=== PATIENT | female | born 1955 | race Caucasian/White ===

== ENCOUNTER → 2023-06-19 | Outpatient (CLI) | payer OTHER ==
--- NOTE | 2023-06-19 14:48 | P.SLEEP ---
History of Present Illness DATE: 06/19/2023 CONSULTATION/NEW PATIENT EVALUATION HISTORY OF PRESENT ILLNESS/SLEEP-WAKE EVALUATION: 67-year-old lady had been evaluated in the sleep center for possible obstructive sleep apnea hypopnea syndrome. Patient has history of obstructive sleep apnea hypopnea syndrome diagnosed about 20 years ago. At that time patient was started on treatment with CPAP but for different reason was not able to use CPAP equipment. SLEEP SCHEDULE: Usually sleep schedule from 10 PM to 5 AM on weekdays and from 10 PM to 7 AM on weekend. FALLING ASLEEP: Usually no problems with falling asleep. DURING SLEEP: Patient snores and has multiple awakenings from sleep 4 times with dry mouth, heartburn and sweating. No history of hypnogogical hallucinations, sleep paralysis, or cataplexy. DURING THE DAY/WAKE STATE: In the morning patient wake up tired, has problems with memory, irritability, depression and anxiety. [place] sleepiness scale is borderline 9. Patient usually doesn't take naps. PAST MEDICAL HISTORY: Depression, acid reflux, hyperlipidemia. PAST SURGICAL HISTORY: 1 parathyroid gland have been removed, surgical treatment for cataract bilaterally. MEDICATIONS: Paxil, Crestor, omeprazole, Wellbutrin, trazodone, vitamin B12, vitamin D. SOCIAL HISTORY: Negative for smoking, alcohol consumption occasional. FAMILY HISTORY: Hypertension, heart problems, depression. REVIEW OF SYSTEMS: Snoring, multiple awakenings from sleep, sleepiness during the day. No fevers. No double vision. No recent chest pain. No shortness of breath. No abdominal pain. No bleeding episodes. No blood in urine. No seizure episodes. PHYSICAL EXAMINATION: GENERAL: A pleasant patient without any distress. VITAL SIGNS: BP 144/79 , HR 99 , RR 18 , weight 159.8 pounds, height 5 foot 1 inches, body mass index 30.0 . HEENT: PERRLA, EOMI. Evaluation of oropharynx showed tongue protrudes midline, low position of soft palate Mallampati 3, retrognathia 2 mm NECK: Supple. No JVD. Thyroid is not palpable. 15-1/4 inches in circumference. LUNGS: Clear to percussion and to auscultation. Good air exchange. No wheezing or rhonchi. HEART: S1, S2 regular. No murmurs, gallops or rubs. ABDOMEN: Soft and nontender. Bowel sounds are present. No organomegaly appreciated. EXTREMITIES: No clubbing or cyanosis. CHUTE MAN: Awake, alert, and oriented x3. Cranial nerves 2 to 7 intact. There is no fasciculation or atrophy noted. No focal deficits observed. ASSESSMENT: 1. Snoring, multiple awakenings from sleep, low position of soft palate Mallampati 3, retrognathia history of obstructive sleep apnea in the past diagnosed in another institution. Obstructive sleep apnea hypopnea syndrome 2. Depression 3. Hyperlipidemia 4. Acid reflux 5 status post 1 parathyroid gland removed 6 . Status post surgical treatment for cataract bilaterally. 7. Mild obesity, body mass index 30.0. PLAN: 1. Polysomnography for evaluation of patient's breathing during sleep. 2. CPAP/BiPAP titration if sleep study confirms obstructive sleep apnea- hypopnea syndrome. 3. Preferable position during sleep on the side. 4. No driving if patient feels any sleepiness. Patient is aware of civil and criminal liability for unsafe driving. 5. Sleep hygiene with regular sleep time for at least 7.5-8 hours. 6. Watching and losing weight. Thank you very much for referring this patient for consultation. Sincerely, Kumar Domingo MD, PhD, FAASM. Diplomat of [place] [employer], Sleep Medicine Board by [place] [employer] [place] [employer] Community Development Worker of [facility] [place] Sleep Note - Sleep Note Sleep Note: Temperature: Pulse Rate: Respiratory Rate: Blood Pressure: SpO2: Height: Weight: BMI: Neck Circumference:
== END ==
LOC: 3 N SLEEP 13:54
PROVIDERS: ATTEND Internal Medicine
DX: G47.33 Obstructive sleep apnea (adult) (pediatric) (principal); F32.A Depression, unspecified; E78.5 Hyperlipidemia, unspecified; K21.9 Gastro-esophageal reflux disease without esophagitis; E66.9 Obesity, unspecified; Z98.890 Other specified postprocedural states; Z99.89 Dependence on other enabling machines and devices; Z68.30 Body mass index [BMI] 30.0-30.9, adult
CPT/HCPCS: 99202

== ENCOUNTER → 2024-04-02 | Outpatient (CLI) | payer OTHER ==
--- NOTE | 2024-04-08 15:24 | P.PCN ---
Description of Procedure: CLINICAL: A home sleep apnea test has been done for confirmation of possible obstructive sleep apnea-hypopnea syndrome. DESCRIPTION OF PROCEDURE: RESULTS: Recording time was 10 hours 24 minutes. Evaluation time was 10 hours 13 minutes. Evaluation time is sufficient for making conclusion about results of the test. Raw data of sleep recording has been reviewed and is adequate. Respiratory channel showed 54 apneas and 244 hypopneas. Apnea-hypopnea index was 29.2 per hour. Pulse rate in the range between minimum 43, maximum 106, average 82 by computer calculation. Lowest desaturation was 71%. IMPRESSION: 1. Obstructive Sleep Apnea Hypopnea Syndrome in moderate, borderline to severe range with severe oxygen desaturation. Please see other impressions from consultation. PLAN: 1. The patient should have PAP titration for correction of respiratory abnormallities during sleep. 2. Sleep hygiene with regular time in bed for at least 8 hours. 3. Watching weight. 4. No driving if feeling any sleepiness. Thank you very much for allowing me to participate in the management of your patient. Sincerely, Kumar Domingo MD, PhD, FAASM Diplomat of [place] [employer] Sleep Medicine Board of [place] [employer] Medicine Self Propelled Hot Mix Roller Operator of [facility] [place]
== END ==
LOC: 3 N SLEEP 16:35
PROVIDERS: ATTEND Internal Medicine
DX: G47.33 Obstructive sleep apnea (adult) (pediatric) (principal); G47.10 Hypersomnia, unspecified; G47.36 Sleep related hypoventilation in conditions classified elsewhere

== ENCOUNTER 2024-05-12 19:39 | Outpatient (CLI) | payer OTHER ==
--- NOTE | 2024-05-13 18:26 | P.PCN ---
Description of Procedure: CLINICAL: Titration with positive air pressure has been done for correction of respiratory abnormalities during sleep. DESCRIPTION OF PROCEDURE: The standard montage for clinical polysomnography included the electroencephalogram, the electrocardiogram, the mentalis surface electromyography and Lead II cardiography. The respiratory battery consisted of measurements of nasal /buccal air flow, pressure transducer measurements from the nose, thoracic and /or abdominal effort and intercostal surface electromyography. Video monitoring has been done to check for any parasomnia events. Nocturnal oxyhemoglobin saturations were obtained by finger oximetry. Step-lujan titration with positive airway pressure was utilized to control respiratory events. Raw data of sleep recording has been reviewed and is adequate. RESULTS: Sleep efficiency was extremely short 48.4%. Latency to sleep onset was extremely long 108.0 minutes.]. Sleep architecture showed stage N1 was increased to 9.2%, Delta sleep was practically absent 0.3%, REM sleep was absent 0%. Heart rate was minimum 70 BPM, maximum 79 BPM, average 73 BPM. EMG showed 35.9 periodic limb movements per hour with 0 micriarousals per hour. PAP titration have been done with CPAP up to the pressure 7 cm H2O. The best results were at the pressure 7 cm H2O. Apnea hypopnea index reduced to 0. IMPRESSION: 1. Moderate borderline to severe obstructive sleep apnea hypopnea syndrome on controle with PAP treatment in non-REM sleep. No REM sleep have been documented during the sleep study. 2. Significant periodic limb movements have been documented. Please see other impressions from consultation. PLAN: 1. The patient will have treatment with positive air pressure equipment with the level of pressure AutoPAP 5-8 cm H2O and should use it every night for the whole night. 2. Watching weight. 3. Sleep hygiene with regular time in bed for at least 8 hours. 4. No driving if feeling any sleepiness. 5. I will see the patient for follow up visit to explain the results of the test, recommendations, check compliance with treatment and make any necessary adjustment related to mask fitting, pressure and humidification. 6. Please check iron profile including ferritin level. Low level of iron may increase risk for periodic limb movements Thank you very much for allowing me to participate in the management of your patient. Sincerely, Kumar Domingo MD, PhD, FAASM Diplomat of [place] [employer] Sleep Medicine Board of [place] [employer] Medicine Clinical Rn of [facility] [place]
== END 2024-05-13 05:15 | disposition home or self-care (01) ==
LOC: 3 N SLEEP 19:39
PROVIDERS: ATTEND Internal Medicine
DX: G47.33 Obstructive sleep apnea (adult) (pediatric) (principal); G47.61 Periodic limb movement disorder; F32.A Depression, unspecified; E78.5 Hyperlipidemia, unspecified; M26.19 Other specified anomalies of jaw-cranial base relationship; K21.9 Gastro-esophageal reflux disease without esophagitis; E66.9 Obesity, unspecified; Z98.890 Other specified postprocedural states; Z90.89 Acquired absence of other organs; Z68.30 Body mass index [BMI] 30.0-30.9, adult
CPT/HCPCS: 95811

== ENCOUNTER 2024-05-20 08:47 | Day surgery (SDC) | payer OTHER ==
[2024-05-18 13:43] VITALS: BMI 28.0
[2024-05-20 09:20] VITALS: TEMP 97
[2024-05-20] MEDS: IV FLUID CONTINUATION 1,000 ML IV ONE (09:41)
[2024-05-20] MEDS: LACTATED RINGERS 1,000 ML IV SCH (09:42)
[2024-05-20] MEDS ORDERED: PROPOFOL 10 MG/ML 20 ML VIAL IV ONE (09:59)
--- NOTE | 2024-05-20 10:12 | P.PCN ---
Date of Procedure: 05/20/24 Procedure(s) Performed: BRIEF HISTORY: Patient is a 68-year-old pleasant white female scheduled for an elective colonoscopy as a part of evaluation by history of colon polyps PROCEDURE PERFORMED: Colonoscopy. PREOPERATIVE DIAGNOSIS: History of colon polyps. IV sedation per Anesthesia. PROCEDURE: After informed consent was obtained, the patient, was brought into the endoscopy unit. IV sedation was administered by Anesthesia under continuous monitoring. Digital rectal examination was normal. Initially the Olympus CF-160 flexible video colonoscope was then inserted in the rectum, gradually advanced into the cecum without any difficulty. Careful examination was performed as the scope was gradually being withdrawn. Ileocecal valve and the appendiceal orifice were visualized and appeared normal. Prep was excellent. Mucosa of the cecum, ascending colon, transverse colon, descending colon, sigmoid colon, and rectum appeared normal. Scattered sigmoid diverticulosis. Retroflexion was performed in the rectum and no lesions were seen. The patient tolerated the procedure well. IMPRESSION: Normal-appearing colon from rectum to cecum with no evidence of colorectal neoplasia. Scattered sigmoid diverticulosis. RECOMMENDATIONS: Findings of this examination were discussed with the patient a s well as her family. She was advised to have repeat screening colonoscopy in 10 years.
[2024-05-20 10:44] VITALS: BP 138/83; PULSE 88; RESP 14
== END 2024-05-20 11:00 | disposition home or self-care (01) ==
LOC: ORWHC2ENDO 08:47
PROVIDERS: ATTEND Internal Medicine Gastroenterology
DX: Z12.11 Encounter for screening for malignant neoplasm of colon (principal); K57.30 Diverticulosis of large intestine without perforation or abscess without bleeding; I10 Essential (primary) hypertension; E78.5 Hyperlipidemia, unspecified; G47.33 Obstructive sleep apnea (adult) (pediatric); F41.9 Anxiety disorder, unspecified; F32.A Depression, unspecified; K21.9 Gastro-esophageal reflux disease without esophagitis; Z79.899 Other long term (current) drug therapy; Z86.010 Personal history of colon polyps; Z98.890 Other specified postprocedural states
CPT/HCPCS: J2704; G0105

== ENCOUNTER → 2024-05-22 | Outpatient (CLI) | payer OTHER ==
--- NOTE | 2024-05-29 21:23 | MM ---
Reason for Exam: Screening (asymptomatic). Last mammogram was performed 2 year(s) and 5 month(s) ago. Patient History: Menarche at age 12. First Full-Term at age 27. Postmenopausal. Endometrial cancer, age 46. Unspecified Hormone for 6 months starting at age 50. 2003, Benign Core Biopsy on the left side. Maternal aunt had breast cancer, age 55. Risk Values: Annmarie 5 year model risk: 2.4%. NCI Lifetime model risk: 8.3%. Prior Study Comparison: 03/20/2005 Left Special View Mammogram, [facility]. 08/23/2005 Bilateral Diagnostic Mammogram, [facility]. 02/28/2007 Bilateral Screening Mammogram, [facility]. 02/20/2018 Bilateral Screening Mammogram, [facility]. 05/23/2020 Bilateral Screening Mammogram, [facility]. 12/18/2021 Bilateral Screening Mammogram, [facility]. Tissue Density: There are scattered areas of fibroglandular density. Findings: Analyzed By CAD. Microclip left breast from prior biopsy. A few benign vascular calcifications on both sides. There is no suspicious group of microcalcifications or new suspicious mass in either breast. Overall Assessment: Benign, BI-RAD 2 Management: Screening Mammogram of both breasts in 1 year. . Patient should continue monthly self-breast exams. A clinical breast exam by your physician is recommended on an annual basis. This exam should not preclude additional follow-up of suspicious palpable abnormalities. Note on Annmarie scores and lifetime risk: 1. A Annmarie score greater than 3% is considered moderate risk. If this is the case, consider specialist referral to assess eligibility for a risk reducing agent. 2. If overall lifetime risk for the development of breast cancer is 20% or higher, the patient may qualify for future screening with alternating mammogram and breast MRI. Electronically signed and approved by: Susanna Ibrahim M.D. Radiologist
== END | disposition home or self-care (01) ==
LOC: RADMAMWWP 07:39
PROVIDERS: ATTEND Family Medicine
DX: Z12.31 Encounter for screening mammogram for malignant neoplasm of breast (principal); R92.323 Mammographic fibroglandular density, bilateral breasts; Z78.0 Asymptomatic menopausal state; Z80.3 Family history of malignant neoplasm of breast
CPT/HCPCS: 77067

== ENCOUNTER → 2024-09-09 | Outpatient (CLI) | payer OTHER ==
[2024-09-09 13:27] VITALS: BP 146/82; PULSE 84; RESP 16; TEMP 98.5
--- NOTE | 2024-09-09 13:52 | P.PROGSL ---
Subjective DATE: 09/09/2024 FOLLOW UP VISIT. Patient with obstructive sleep apnea hypopnea syndrome return to sleep center for follow-up visit. Information from previous visit have been reviewed. Patient is using PAP equipment every night for the whole night, getting PAP supplies in time. The patient does not have significant problems with the mask, PAP unit and humidification. [place] sleepiness scale is 2. I checked information from PAP unit. PAP unit pressure 5-8, average 7.8 cm H2O. Usage is 100% for more then 4 hours, average 7.8 hours per night. Leak is 4.1 l/m, which is in normal range. Apnea Hypopnea Index is 1.3, which is perfect. MEDICATIONS have been reviewed, please see below. During physical exam: GENERAL: A pleasant patient without any distress. VITAL SIGNS: Please see below, weight is 157 lbs. HEENT: PERRLA, EOMI.low position of soft palate, Mallapati 3. NECK: Supple. No JVD. LUNGS: Clear to percussion and to auscultation. Good air exchange. No wheezing or rhonchi. HEART: S1, S2 regular. ABDOMEN: Soft and nontender.[] EXTREMITIES: No clubbing or cyanosis. GOLF CLUB WEIGHTER: Awake, alert, and oriented x3. No focal deficit. Impressions: 1. Obstructive sleep apnea-hypopnea syndrome. Patient demonstrated great compliance with treatment, benefiting from treatment. 2. Hyperlipidemia. 3. History of depression. 4. Acid reflux. 5. Status post 1 parathyroid gland removed. 6. Status post bilateral cataract surgery. 7. Mild obesity. Plan: 1. Continue using PAP equipment every night for the whole night. 2. Sleep hygiene with regular time in bed for at least 7.5-8 hours 3. PAP unit should stay lower then position of the head. 4. Advised patient to remove all remaining water from humidifier canister daily and make it dry after each usage. Refill canister with fresh distilled water before each usage. 5. Watching weight. 6. Precautions related to driving. No driving if feel any sleepiness. 7. I will maintain prescription for PAP supplies including mask, tube, filters. 8. Follow up visit in 8 months or earlier if patient has any problems. Thank you very much for allowing me to participate in the management of your patient. Kumar Domingo MD, PhD, FAASM. Diplomat of [place] [employer] Medicine, Sleep Medicine Board by [place] [employer] Christian Education Director of [facility] [place] cc: Agatha Gusman MD Objective - Vital Signs Vital Signs: Vital Signs Temp 98.5 F 09/09/24 13:26 Pulse 84 09/09/24 13:26 Resp 16 09/09/24 13:26 BP 146/82 09/09/24 13:26 Pulse Ox 96 09/09/24 13:26 FiO2 Intake & Output 09/08/24 09/09/24 09/09/24 18:59 06:59 18:59 Weight 71.214 kg Home Medications: Home Medications Medication Instructions Recorded Confirmed Type Aspirin EC [Ecotrin Low Dose] 81 mg PO DAILY 05/18/24 05/18/24 History Cholecalciferol [Vitamin D3 (25 25 mcg PO DAILY 05/18/24 05/18/24 History Mcg = 1000 Iu)] Cyanocobalamin (Vitamin B-12) 1,000 mcg PO DAILY 05/18/24 05/18/24 History [Vitamin B-12] Omeprazole 20 mg PO DAILY 05/18/24 05/18/24 History PARoxetine HCL [Paxil] 60 mg PO DAILY 05/18/24 05/18/24 History Rosuvastatin Calcium [Crestor] 40 mg PO HS 05/18/24 05/18/24 History modafiniL [Provigil] 200 mg PO DAILY 05/18/24 05/18/24 History
== END ==
LOC: 3 N SLEEP 13:15
PROVIDERS: ATTEND Internal Medicine
CPT/HCPCS: 99212

== ENCOUNTER → 2025-02-23 | Outpatient (CLI) | payer MEDICARE ==
--- NOTE | 2025-02-23 11:17 | MM ---
Reason for Exam: Clinical finding. Last screening mammogram was performed 9 month(s) ago. Patient History: Menarche at age 12. First Full-Term at age 27. Postmenopausal. Endometrial cancer, age 46. Unspecified Hormone for 6 months starting at age 50. 2002, Benign Core Biopsy on the left side. Maternal aunt had breast cancer, age 55. Risk Values: Annmarie 5 year model risk: 2.5%. NCI Lifetime model risk: 7.9%. Prior Study Comparison: 05/23/2020 Bilateral Screening Mammogram, [facility]. 12/18/2021 Bilateral Screening Mammogram, [facility]. 05/22/2024 Bilateral MG screening mammo w CAD, [facility]. Tissue Density: Right: The breasts are heterogeneously dense, which may obscure small masses. Findings: Analyzed By CAD. No suspicious new mass or distortion. Overall Assessment: Incomplete: need additional imaging evaluation, BI-RAD 0 Management: Diagnostic Breast Ultrasound of the right breast. Targeted Ultrasound palpable abnormality right breast. Results were given to the patient verbally at the time of exam. Patient should continue monthly self-breast exams. A clinical breast exam by your physician is recommended on an annual basis. This exam should not preclude additional follow-up of suspicious palpable abnormalities. Note on Annmarie scores and lifetime risk: 1. A Annmarie score greater than 3% is considered moderate risk. If this is the case, consider specialist referral to assess eligibility for a risk reducing agent. 2. If overall lifetime risk for the development of breast cancer is 20% or higher, the patient may qualify for future screening with alternating mammogram and breast MRI. [facility], , 02/23/2025 11:13 AM. Electronically signed and approved by: Zachary Vyas M.D.
--- NOTE | 2025-02-23 11:38 | USB ---
Reason for Exam: Clinical finding. Patient History: Menarche at age 12. First Full-Term at age 27. Postmenopausal. Endometrial cancer, age 46. Unspecified Hormone for 6 months starting at age 50. 2003, Benign Core Biopsy on the left side. Maternal aunt had breast cancer, age 55. Risk Values: Annmarie 5 year model risk: 2.5%. NCI Lifetime model risk: 7.9%. Technique: Method: Targeted. Prior Study Comparison: 05/23/2020 Bilateral Screening Mammogram, [facility]. 12/18/2021 Bilateral Screening Mammogram, [facility]. 05/22/2024 Bilateral MG screening mammo w CAD, [facility]. Findings: The area of palpable concern of the right breast, the axilla of the right breast and the retroareolar of the right breast were scanned. Thyroid ultrasound area of clinical concern new lump After recent trauma. There are 2 small hyperechoic oval near 1.0 cm areas could reflect resolving hematomas or small lipomas just below the dermal layer. Overall Assessment: Benign, BI-RAD 2 Management: Screening Mammogram of both breasts in 3 months. Back and bilateral annual schedule. A clinical breast exam by your physician is recommended on an annual basis and results should be correlated with mammographic findings. This exam should not preclude additional follow-up of suspicious palpable abnormalities. Results were given to the patient verbally at the time of exam. [facility], , 02/23/2025 11:34 AM. Electronically signed and approved by: Zachary Vyas M.D.
== END | disposition home or self-care (01) ==
LOC: RADMAMWWP 10:48
PROVIDERS: ATTEND Family Medicine
DX: N63.10 Unspecified lump in the right breast, unspecified quadrant (principal); R92.331 Mammographic heterogeneous density, right breast; Z78.0 Asymptomatic menopausal state; Z80.3 Family history of malignant neoplasm of breast
CPT/HCPCS: 77065; 76642; G0279; 77061